=== PATIENT | male | born 1960 | race African-American/Black ===

== ENCOUNTER 2021-08-13 18:01 | Emergency (ER) | payer MEDICAID ==
[~2021-08-13] VITALS: Ht 182.9 cm; Wt 88.0 kg
[2021-08-13 18:03] VITALS: BP 133/86
== END 2021-08-13 19:05 | disposition left against medical advice (07) ==
LOC: ER 18:01
DX: Z53.21 Procedure and treatment not carried out due to patient leaving prior to being seen by health care provider (principal)

== ENCOUNTER 2021-08-17 07:56 | Emergency (ER) | payer MEDICAID ==
[~2021-08-17] VITALS: Ht 182.9 cm; Wt 88.0 kg
[2021-08-17 08:06] VITALS: BP 140/97
== END 2021-08-17 09:51 | disposition home or self-care (01) ==
LOC: ER 07:56
DX: N52.9 Male erectile dysfunction, unspecified (principal); R39.15 Urgency of urination; H40.9 Unspecified glaucoma; I10 Essential (primary) hypertension; Z98.890 Other specified postprocedural states
CPT/HCPCS: 99281; Z7610

== ENCOUNTER 2022-02-25 15:55 | Emergency (ER) | payer MEDICAID, OTHER ==
[~2022-02-25] VITALS: Ht 180.3 cm; Wt 87.0 kg
[2022-02-25] MEDS ORDERED: BUPIVACAINE HCL 0.5% (5MG/ML) 50ML INFIL STA (17:50)
[2022-02-25] MEDS ORDERED: GABAPENTIN 300MG CAPSULE PO STA (17:52)
[2022-02-25] MEDS ORDERED: IBUPROFEN 400MG TABLET PO ONE (18:00)
[2022-02-25] MEDS ORDERED: ACETAMINOPHEN 325MG TABLET PO ONE (18:00)
[2022-02-25] MEDS ORDERED: GABA-290 MT (19:25)
[2022-02-25] MEDS ORDERED: ACET325T52 MT (19:26)
[2022-02-25 19:51] VITALS: BP 126/90
== END 2022-02-25 19:53 | disposition home or self-care (01) ==
LOC: ER 15:55
DX: M54.81 Occipital neuralgia (principal); R79.82 Elevated C-reactive protein (CRP); I10 Essential (primary) hypertension
CPT/HCPCS: 36415; 85651; 86140; 99284; J3490

== ENCOUNTER 2022-07-14 09:19 | Emergency (ER) | payer MEDICAID, OTHER ==
[~2022-07-14] VITALS: Ht 182.9 cm; Wt 91.0 kg
[~2022-07-14 09:19] MED LIST: ACET325T52 MT; GABA-290 MT
[2022-07-14 09:34] VITALS: BP 138/88
[2022-07-14] MEDS ORDERED: HYDROCODONE/ACETAMINOPHEN 5/325MG TABLET PO ONE (10:30)
[2022-07-14] MEDS ORDERED: NAPR-681 MT (13:27)
== END 2022-07-14 14:38 | disposition home or self-care (01) ==
LOC: ER 09:19
DX: M25.562 Pain in left knee (principal); I10 Essential (primary) hypertension; H40.9 Unspecified glaucoma; Z98.890 Other specified postprocedural states
CPT/HCPCS: 73562; 93971; 99284

== ENCOUNTER 2023-01-20 13:18 | Emergency (ER) | payer MEDICAID, OTHER ==
[~2023-01-20] VITALS: Ht 182.9 cm; Wt 91.0 kg
[~2023-01-20 13:18] MED LIST changes: +NAPR-681 MT
[2023-01-20 17:29] LABS: BASOPHILS % 0.4 % (0.0-2.0); EOSINOPHILS % 2.5 % (0.0-5.0); HEMOGLOBIN. 13.4 g/dL (14.0-18.0); LYMPHOCYTES % 14.1 % (20.0-50.0); MEAN CORPUSCULAR HEMOGLOBIN 29.1 pg (28.0-32.0); MEAN CORPUSCULAR VOLUME 87.3 fL (80.0-94.0); MEAN PLATELET VOLUME 7.2 fl (7.4-10.4); MONOCYTES % 11.1 % (2.0-8.0); NEUTROPHILS % 71.9 % (40.0-76.0); PLATELET 323 x1000/uL (130-400); RED BLOOD CELL COUNT 4.59 mill/uL (4.7-6.1); RED CELL DISTRIBUTION WIDTH 13.9 % (11.6-14.6)
[2023-01-20 17:38] LABS: CHLORIDE 105 mEq/L (98-107)
[2023-01-20 17:39] LABS: PARTIAL THROMBOPLASTIN TIME 32.8 sec (23.4-31.0); PROTHROMBIN TIME 10.9 sec (9.6-11.0)
[2023-01-20 18:14] VITALS: BP 166/100
[2023-01-20] MEDS ORDERED: MED4 MT (20:30)
[2023-01-20] MEDS ORDERED: BENZ1LOZ73 MT (20:30)
[2023-01-20] MEDS ORDERED: PSEU120T56 MT (20:31)
[2023-01-20 20:56] LABS: CLARITY URINE CLEAR (CLEAR); COLOR URINE YELLOW (YELLOW); KETONES URINE NEGATIVE (NEGATIVE); LEUKOCYTE ESTERASE URINE NEGATIVE (NEGATIVE); NITRITE URINE NEGATIVE (NEGATIVE); OCCULT BLOOD URINE NEGATIVE (NEGATIVE); PH URINE 6.5 (4.5-8.0); PROTEIN URINE NEGATIVE (NEGATIVE); SPECIFIC GRAVITY URINE 1.019 (1.005-1.030)
== END 2023-01-20 20:59 | disposition home or self-care (01) ==
LOC: ER 13:42
DX: J06.9 Acute upper respiratory infection, unspecified (principal); E78.00 Pure hypercholesterolemia, unspecified; Z98.890 Other specified postprocedural states
CPT/HCPCS: 36415; 71045; 80053; 81003; 84484; 85025; 93005; 99285

== ENCOUNTER 2025-07-03 00:10 | Emergency (ER) | payer MEDICAID ==
[~2025-07-03] VITALS: Ht 182.9 cm; Wt 91.0 kg
[~2025-07-03 00:10] MED LIST changes: +ACET-3800 MT; -ACET325T52 MT; +BENZ1LOZ73 MT; +METH4TAB95 MT; +PSEU120T56 MT
[2025-07-03 00:16] VITALS: TEMP 36.7; O2SAT 94
[2025-07-03 00:36] LABS: CLARITY URINE CLEAR (CLEAR); COLOR URINE YELLOW (YELLOW); GLUCOSE URINE NEGATIVE (NEGATIVE); KETONES URINE NEGATIVE (NEGATIVE); LEUKOCYTE ESTERASE URINE NEGATIVE (NEGATIVE); NITRITE URINE NEGATIVE (NEGATIVE); OCCULT BLOOD URINE NEGATIVE (NEGATIVE); PH URINE 6.0 (4.5-8.0); PROTEIN URINE NEGATIVE (NEGATIVE); SPECIFIC GRAVITY URINE 1.016 (1.005-1.030); UROBILINOGEN URINE 1.0 E.U./dL (0.2-1.0)
[2025-07-03 00:59] LABS: BASOPHILS % 0.6 % (0.0-2.0); EOSINOPHILS % 2.9 % (0.0-5.0); HEMATOCRIT. 42.4 % (42.0-52.0); HEMOGLOBIN. 13.8 g/dL (14.0-18.0); LYMPHOCYTES % 24.1 % (20.0-50.0); MEAN PLATELET VOLUME 7.9 fl (7.4-10.4); MONOCYTES % 7.8 % (2.0-8.0); NEUTROPHILS % 64.6 % (40.0-76.0); PLATELET 168 x1000/uL (130-400); RED BLOOD CELL COUNT 4.75 mill/uL (4.7-6.1); RED CELL DISTRIBUTION WIDTH 13.9 % (11.6-14.6)
[2025-07-03 01:13] LABS: CREATININE 1.2 mg/dL (0.6-1.3); TROPONIN I HIGH SENSITIVITY 6 ng/L (3.0-53); UREA NITROGEN BLOOD 11 mg/dL (9-23)
[2025-07-03] MEDS: KETOROLAC 15MG/ML VIAL IM ONE (01:53)
[2025-07-03 02:26] LABS: ASPARTATE AMINOTRANSFERASE 18 IU/L (<34); BILIRUBIN DIRECT 0.2 mg/dL (<=3.0); BILIRUBIN TOTAL 0.4 mg/dL (0.1-1.0); PROTEIN TOTAL 6.3 g/dL (6.0-8.3)
[2025-07-03 03:38] LABS: TROPONIN I HIGH SENSITIVITY 6 ng/L (3.0-53)
[2025-07-03] MEDS ORDERED: NAPR-1176 MT (03:54)
[2025-07-03 04:01] VITALS: BP 132/90; PULSE 60; RESP 14; O2SAT 95
== END 2025-07-03 04:05 | disposition home or self-care (01) ==
LOC: ER 00:10
DX: R07.89 Other chest pain (principal); R10.12 Left upper quadrant pain; E78.00 Pure hypercholesterolemia, unspecified; Z79.1 Long term (current) use of non-steroidal anti-inflammatories (NSAID)
CPT/HCPCS: 99285; 74176; 80076; 80048; 81003; 83690; 85025; 84484; 36415; 93005; 96372; J1885